=== PATIENT | male | born 1990 | race Caucasian/White ===

== ENCOUNTER 2019-08-07 14:36 | Emergency (ER) | payer OTHER ==
[~2019-08-07] VITALS: Ht 185.4 cm; Wt 80.3 kg
[2019-08-07 14:41] VITALS: BP 138/89
--- NOTE | 2019-08-07 14:50 | NUR ---
PT AMBULATE TO BED NO SOB.
--- NOTE | 2019-08-07 14:52 | NUR ---
C/O SUDDEN ONSET L CALF PAIN AND CHEST PAIN 09/13 STARTING TODAY. PER PT HE HAD 1 EPISODE OF A STERNAL STABBING PAIN THAT CAME AND WENT WITHIN 10 SECONDS, DENIES CHEST PAIN AT THIS TIME. PT AWAKE , ALERT , AFIBRILE , AMBULATORY WITH STEADY GAIT, NO SOB , SCE, CBS BLF , NO LIMITATTION OF ROM OF LT LEG. HX: DEPRESSION RX: WELLBUTRIN
[2019-08-07] MEDS ORDERED: ACETAMINOPHEN EXTRA STRENGTH 500 MG TAB PO ONE (15:15)
--- NOTE | 2019-08-07 15:30 | NUR ---
EMT AT BEDSIDE DOING EKG
--- NOTE | 2019-08-07 15:33 | NUR ---
US AT BEDSIDE.
--- NOTE | 2019-08-07 15:51 | NUR ---
PT COMFORTABLE IN BED SIDE RAILS UP X1 AND LOCK.
[2019-08-07 16:37] VITALS: BP 130/85
--- NOTE | 2019-08-07 16:39 | NUR ---
Patient discharged with v/s stable. Written and verbal after care instructions given and explained regarding cramps Patient alert, oriented and verbalized understanding of instructions. Ambulatory with steady gait. All questions addressed prior to discharge. ID band removed. Patient advised to follow up with PMD. Rx of motrin given. Patient educated on indication of medication including possible reaction and side effects. Opportunity to ask questions provided and answered.
== END 2019-08-07 16:39 | disposition home or self-care (01) ==
LOC: MED 14:36
DX: M79.669 Pain in unspecified lower leg (principal); R07.9 Chest pain, unspecified; F12.90 Cannabis use, unspecified, uncomplicated
CPT/HCPCS: 93005; 93971; 99284; Q0092

== ENCOUNTER 2019-12-05 12:33 | Emergency (ER) | payer OTHER ==
[~2019-12-05] VITALS: Ht 188 cm; Wt 81.6 kg
[2019-12-05 12:39] VITALS: BP 141/79
--- NOTE | 2019-12-05 12:46 | NUR ---
AMBULATED TO BED 2
--- NOTE | 2019-12-05 13:00 | NUR ---
C/O LEFT ELLOW PAIN S/P BIKING & FALL X TODAY. PT AOX 4 , AFIBRILE , AMBULATORY WITH STEADY GAIT , AFIBRILE , AMBULATORY WITH STEADY GAIT , PINK PALPEBRAL CONJUNCTIVA , ANICTERIC SCLERA , SCE , FLAT SOFT ABDOMEN. MED HX: DENIES
--- NOTE | 2019-12-05 13:02 | NUR ---
dr hale at bedside evaluating pt.
--- NOTE | 2019-12-05 13:17 | NUR ---
XRAY AT BEDSIDE
--- NOTE | 2019-12-05 14:01 | NUR ---
DR BYNUM REEVALUATING PT.
--- NOTE | 2019-12-05 14:17 | NUR ---
PLACED SPLINT ON LEFT ARM OF PT
--- NOTE | 2019-12-05 14:23 | NUR ---
PT SENT HOME WITH XRAY CD.
[2019-12-05 14:25] VITALS: BP 141/79
--- NOTE | 2019-12-05 14:26 | NUR ---
Patient discharged with v/s stable. Written and verbal after care instructions given and explained. Patient verbalized understanding. Ambulatory with steady gait. All questions addressed prior to discharge. Advised to follow up with PMD.
== END 2019-12-05 14:26 | disposition home or self-care (01) ==
LOC: MED 12:33
DX: S52.92XA Unspecified fracture of left forearm, initial encounter for closed fracture (principal); V18.0XXA Pedal cycle driver injured in noncollision transport accident in nontraffic accident, initial encounter; Y93.89 Activity, other specified; Y92.89 Other specified places as the place of occurrence of the external cause; Y99.8 Other external cause status
CPT/HCPCS: 73080; 73110; 99284; Q0092